=== PATIENT | male | born 1940 | race Caucasian/White ===

== ENCOUNTER 2016-12-27 10:29 | Emergency (ER) | payer MEDICARE, MEDICAID ==
--- NOTE | 2016-12-27 11:21 | RAD ---
Exam: Complete right shoulder COMPARISON: None INDICATION: Right shoulder pain, fell off stool. Finding: AP, Grashey and transscapular y views of the right shoulder were obtained. Osteopenia. Glenohumeral and acromioclavicular alignment is maintained. Body of the scapula appears somewhat shortened which may be congenital or related to positioning. Definite fracture of the scapula is not seen. Visualized right hemithorax within normal limits. IMPRESSION: Unusual somewhat foreshortened appearance of the body of the scapula which may be related to patient positioning, congenital or posttraumatic deformity. No definite acute fracture of the scapula is seen, but correlate for any pain in this location. Osteopenia. Otherwise negative right shoulder.
== END 2016-12-27 12:53 | disposition home or self-care (01) ==
LOC: ED 10:29
DX: S40.011A Contusion of right shoulder, initial encounter (principal); W07.XXXA Fall from chair, initial encounter; Y92.9 Unspecified place or not applicable